=== PATIENT | female | born 1945 | race African-American/Black ===

== ENCOUNTER 2024-06-09 16:42 | Emergency (ER) | payer MEDICARE ==
[2024-06-09 17:18] LABS: #Basophils 0.04 10x3/uL (0.0-0.2); %Basophils 0.7 % (0.0-1.0); %Eosinophils 10.4 % (0.0-10.0); %Lymphocytes 23.7 % (21.0-51.0); %Monocytes 7.8 % (0.0-10.0); %Neutrophils 57.2 % (42.0-75.0); Mean Corpuscular HGB CONC 31.6 g/dL (32.0-36.0); Mean Corpuscular Hemoglobin 28.7 pg (27.0-31.0); Mean Corpuscular Volume 90.9 fL (78.0-98.0); Mean Platelet Volume 9.8 fL (7.4-10.4); Platelet Count 271 10x3/uL (130-400); RBC Distribution Width 13.7 % (11.5-14.5); Red Blood Cell (RBC) Count 4.18 mill/uL (4.20-5.40)
[2024-06-09] MEDS ORDERED: Dexamethasone 10 MG/ML VIAL ONE (17:18)
[2024-06-09 17:34] LABS: ALT (SGPT) 30 U/L (8-55); AST (SGOT) 36 U/L (5-34); Albumin 3.9 g/dL (3.4-4.8); Alkaline Phosphatase 78 U/L (40-110); Anion Gap 15 mmol/L (10-20); BUN (Urea Nitrogen) 18 mg/dL (9.8-20.1); Bilirubin, Total 0.4 mg/dL (0.2-1.2); Calc. Creatinine Clearance 0 mL/min (70-130); Calcium 10.6 mg/dL (7.8-10.44); Carbon Dioxide 26 mmol/L (23-31); Chloride 106 mmol/L (98-107); Estimated GFR 76; Globulin 3.4 g/dL (2.4-3.5); Glucose 97 mg/dL (83-110); Potassium 3.7 mmol/L (3.5-5.1); Protein, Total 7.3 g/dL (5.8-8.1); Sodium 143 mmol/L (136-145)
[2024-06-09 17:37] LABS: Troponin I 0.013 ng/mL (< 0.028)
[2024-06-09 17:47] LABS: Magnesium 1.8 mg/dL (1.6-2.6)
[2024-06-09] MEDS ORDERED: Ipratropium/Albuterol 3 ML NEB ONE ×2 (18:34→20:28)
[2024-06-09 20:51] LABS: Phosphorus 2.4 mg/dL (2.3-4.7)
== END 2024-06-09 21:00 | disposition home or self-care (01) ==
LOC: ERS 16:42
DX: J44.9 Chronic obstructive pulmonary disease, unspecified (principal); Z87.891 Personal history of nicotine dependence
CPT/HCPCS: 71045; 80053; 82010; 83690; 83735; 83880; 84100; 84484; 85025; 93005; 94640; 94760; J1100; 96374; J7620

== ENCOUNTER 2024-06-16 16:42 | Emergency (ER) | payer MEDICARE ==
[2024-06-16] MEDS ORDERED: Magnesium 2 GM/50 ML BAG (IN WATER) ONE (17:02)
[2024-06-16] MEDS ORDERED: methylPREDNISolone Sod Succ/PF 125 MG/2 ML VIAL ONE (17:03)
[2024-06-16 17:15] LABS: #Basophils 0.05 10x3/uL (0.0-0.2); %Basophils 0.7 % (0.0-1.0); %Eosinophils 15.8 % (0.0-10.0); %Lymphocytes 25.2 % (21.0-51.0); %Neutrophils 51.2 % (42.0-75.0); Hematocrit 38.3 % (36.0-47.0); Hemoglobin 12.3 g/dL (12.0-16.0); Mean Corpuscular HGB CONC 32.1 g/dL (32.0-36.0); Mean Corpuscular Hemoglobin 28.8 pg (27.0-31.0); Mean Corpuscular Volume 89.7 fL (78.0-98.0); Mean Platelet Volume 9.6 fL (7.4-10.4); Platelet Count 310 10x3/uL (130-400); RBC Distribution Width 13.8 % (11.5-14.5); Red Blood Cell (RBC) Count 4.27 mill/uL (4.20-5.40)
[2024-06-16] MEDS ORDERED: Ipratropium/Albuterol 3 ML NEB ONE (17:15)
[2024-06-16 17:31] LABS: Actual Bicarbonate (HCO3v) 25.6 mEq/L (22-28); Analyzer IN Cardio ER; Base Excess 0.3 mEq/L (-2.0 to +3.0); Hematocrit-VBG 36 % (36.0-47.0); Hemoglobin (Hb) 12.2 g/dL (11.7-16.1); pH (venous) 7.383 (7.32-7.43)
[2024-06-16 17:32] LABS: Calcium, Ionized (venous) 1.24 mmol/L (1.16-1.32); Chloride (VBG) 106 mmol/L (98-106); Potassium (VBG) 3.81 mmol/L (3.70-5.30); Sodium 144 mmol/L (133-146)
[2024-06-16 17:34] LABS: Troponin I 0.013 ng/mL (< 0.028)
[2024-06-16 17:39] LABS: ALT (SGPT) 34 U/L (8-55); AST (SGOT) 30 U/L (5-34); Albumin 3.8 g/dL (3.4-4.8); Alkaline Phosphatase 87 U/L (40-110); Anion Gap 13 mmol/L (10-20); BUN (Urea Nitrogen) 16 mg/dL (9.8-20.1); Bilirubin, Total 0.3 mg/dL (0.2-1.2); Calc. Creatinine Clearance 0 mL/min (70-130); Calcium 10.2 mg/dL (7.8-10.44); Carbon Dioxide 26 mmol/L (23-31); Chloride 109 mmol/L (98-107); Estimated GFR 74; Globulin 3.6 g/dL (2.4-3.5); Glucose 101 mg/dL (83-110); Potassium 3.9 mmol/L (3.5-5.1); Protein, Total 7.4 g/dL (5.8-8.1); Sodium 144 mmol/L (136-145)
[2024-06-16] MEDS ORDERED: Albuterol 2.5 MG (3 mL) NEB ONE (19:10)
== END 2024-06-16 19:41 | disposition home or self-care (01) ==
LOC: ERS 16:42
DX: J45.20 Mild intermittent asthma, uncomplicated (principal); Z87.891 Personal history of nicotine dependence
CPT/HCPCS: 71045; 80053; 82805; 83605; 83880; 84484; 85025; 87428; 93005; 96374; 96375; 99285; J2919; J3475; 36415; J7611; J7620

== ENCOUNTER 2024-07-07 17:02 | Emergency (ER) | payer MEDICARE ==
[2024-07-07] MEDS ORDERED: methylPREDNISolone Sod Succ/PF 125 MG/2 ML VIAL ONE (18:26)
[2024-07-07] MEDS ORDERED: Ipratropium/Albuterol 3 ML NEB ONE (18:26)
== END 2024-07-07 19:54 | disposition home or self-care (01) ==
LOC: ERS 17:02
DX: J45.901 Unspecified asthma with (acute) exacerbation (principal); J18.9 Pneumonia, unspecified organism; Z87.891 Personal history of nicotine dependence
CPT/HCPCS: 71045; 94640; 94760; J2919; 96374; J7620